=== PATIENT | female | born 1960 | race Caucasian/White ===

== ENCOUNTER 2017-09-18 18:34 | Emergency (ER) | payer BC ==
[2017-09-18] MEDS ORDERED: Fluorescein Sod TOPICAL 0.6* 0.6 MG TEST OPHTHALMIC ONE ×2 (18:54→19:06)
[2017-09-18 19:01] VITALS: BP 147/79
--- NOTE | 2017-09-18 19:26 | UC ---
Skin Complaint HPI - HPI Summary HPI Summary: 57-year-old female with history of ulcerative colitis presents with 3 day history of painful eruption to her right forehead. She also reports some discomfort in her right eye with associated redness. There is no blurring of vision. She has no fever, shakes or chills. There is a little discomfort in front of the right ear. There is no difficulty with balance and no hearing loss. - History of Current Complaint Chief Complaint: UCGeneralIllness Time Seen by Provider: 09/18/17 18:48 Stated Complaint: SKIN COMPLAINT/PAIN Hx Obtained From: Patient Hx Last Menstrual Period: 2 yrs Pain Intensity: 5 - Allergy/Home Medications Allergies/Adverse Reactions: Allergies Allergy/AdvReac Type Severity Reaction Status Date / Time codeine Allergy Vomiting Verified 09/18/17 18:49 asthma related allergies Allergy Congestion Uncoded 06/30/13 10:52 Review of Systems Constitutional: Negative Eyes: Eye Redness, Other - Discomfort in the right eye only ENT: Other - Denies ear pain, sinus pain, sore throat Respiratory: Negative Cardiovascular: Negative Gastrointestinal: Negative All Other Systems Reviewed And Are Negative: Yes PMH/Surg Hx/FS Hx/Imm Hx Previously Healthy: No - ulcerative colitis, hypertension, anxiety Cardiovascular History: Hypertension GI/ History: Other - Ulcerative colitis Other GI/ History: UC Psychological History: Anxiety - Surgical History Surgical History: None Surgery Procedure, Year, and Place: sx intervention for kidney stones - Family History Known Family History: Positive: Unknown - Social History Alcohol Use: Occasionally Substance Use Type: None Smoking Status (MU): Never Smoked Tobacco Physical Exam Triage Information Reviewed: Yes Appearance: Well-Appearing Vital Signs: Initial Vital Signs Temp 98.8 F 09/18/17 18:51 Pulse 79 09/18/17 18:51 Resp 15 09/18/17 18:51 BP 147/79 09/18/17 18:51 Pulse Ox 100 09/18/17 18:51 Vital Signs Reviewed: Yes Eye Exam: Other - Minimal conjunctival injection medially in the right eye only. Fluorescein staining was performed and there is no uptake in the cornea of the right eye. There is no dendrites visible. ENT Exam: Other - There is no rash or lesion on the nose. There are no lesions in the ear canal. ENT: Positive: Normal ENT inspection Neck: Positive: Supple, Nontender, No Lymphadenopathy Respiratory: Positive: Lungs clear Cardiovascular: Positive: RRR Skin: Positive: Other - There is erythematous vesicular appearing eruption in the right frontal scalp and forehead. Course/Dx - Course Course Of Treatment: Patient with apparent V1 distribution zoster with possibility of herpes zoster ophthalmicus. Attempting to discuss case with ophthalmology regarding possible initiation of topical steroid. We will start oral valacyclovir. She'll be encouraged to discontinue ibuprofen given her ulcerative colitis. - Diagnoses Provider Diagnoses: Herpes zoster, herpes zoster ophthalmicus - Physician Notification/Consults Discussed Patient Care With: Shakeel Méndez - will see pt at 9am -- no steroids Discharge - Sign-Out/Discharge Documenting (check all that apply): Patient Departure - Discharge Plan Condition: Improved Disposition: HOME Prescriptions: ValACYclovir (*) [Valtrex 1 GM(*)] 1 gm PO TID #21 tab Patient Education Materials: Shingles (ED) Referrals: Sky Reese MD [Primary Care Provider] - Shakeel Méndez MD [Medical Doctor] - Additional Instructions: See Dr. Méndez at 9am in the morning -- [phone] [address] [place] [address] Kami. second- floor Return with increased eye pain, worse, new symptoms or other concerns. Is not recommended to use ibuprofen or related medications with ulcerative colitis. - Billing Disposition and Condition Condition: IMPROVED Disposition: Home
== END 2017-09-18 19:39 | disposition home or self-care (01) ==
LOC: UCCORT 18:34
DX: B02.30 Zoster ocular disease, unspecified (principal); K51.90 Ulcerative colitis, unspecified, without complications; I10 Essential (primary) hypertension; Z88.5 Allergy status to narcotic agent; Z91.09 Other allergy status, other than to drugs and biological substances
CPT/HCPCS: 99212; G0463